=== PATIENT | female | born 1980 | race American Indian/Alaskan Native ===

== ENCOUNTER 2019-12-25 22:49 | Outpatient (CLI) | payer SELFPAY ==
[2019-12-25 23:14] VITALS: BP 110/69
[2019-12-26] MEDS ORDERED: LACTATED RINGERS 1,000 ML IV ONE (01:56)
[2019-12-26] MEDS: TERBUTALINE 1 MG/1 ML INJ SUB-Q PRN ×2 (02:11→03:08)
== END 2019-12-26 04:00 | disposition home or self-care (01) ==
LOC: TRG 22:49 → APU 22:51 → TRG 12-26 04:00
PROVIDERS: ATTEND Obstetrics & Gynecology
DX: O62.9 Abnormality of forces of labor, unspecified (principal); Z3A.38 38 weeks gestation of pregnancy
CPT/HCPCS: 59025; 96360; 96372; J3105; J7120